=== PATIENT | male | born 1975 | race Caucasian/White ===

== ENCOUNTER 2016-12-20 12:18 | Emergency (ER) | payer MEDICAID ==
[2016-04-16 17:23] VITALS: BMI 38.6
[~2016-12-20 12:18] MED LIST: HYDROCODONE-APA1 TAB PO; LOPRESSOR25 MG PO; NEURONTIN 300300 MG PO; ROBAXIN-750750 MG PO
== END 2016-12-20 13:23 | disposition home or self-care (01) ==
LOC: D.ER 12:18
DX: F32.9 Major depressive disorder, single episode, unspecified (principal); I10 Essential (primary) hypertension

== ENCOUNTER 2018-10-30 05:23 | Emergency (ER) | payer MEDICAID ==
[~2018-10-30] VITALS: Ht 175.3 cm; Wt 115.9 kg
[2018-10-30 05:35] VITALS: Ht 175.3 cm; Wt 115.9 kg
[2018-10-30 06:47] LABS: ALBUMIN 3.8 g/dL (3.4-5.0); ALKALINE PHOSPHATASE 99 U/L (46-116); ALT (SGPT) 56 U/L (10-68); BILIRUBIN - TOTAL 2.05 mg/dL (0.2-1.3); CALC OSMOLALITY 277 mosm/kg (275-300); CALCIUM 8.5 mg/dL (8.5-10.1); CARBON DIOXIDE 26.6 mmol/L (21.0-32.0); CHLORIDE - SERUM 99 mmol/L (98-107); CREATININE - SERUM 0.8 mg/dL (0.6-1.3); PROTEIN - SERUM 7.7 g/dL (6.4-8.2); SODIUM 134 mmol/L (136-145); UREA NITROGEN 11 mg/dL (7-18); URIC ACID 3.2 mg/dL (2.6-7.2); eGFR NON AFRICAN AMERICAN > 90 mL/min (90-120)
[2018-10-30 06:51] LABS: GLUCOSE 290 mg/dL (74-106)
[2018-10-30 07:00] LABS: BASOPHILS 0.2 % (0-2); EOSINOPHILS 2.8 % (0-7); HEMATOCRIT 45.2 % (42.0-54.0); HEMOGLOBIN 15.5 g/dL (13.5-17.5); IMMATURE GRANULOCYTES 0.2 % (0-5); LYMPHOCYTES 14.6 % (15-50); MCH 33.4 pg (26.0-34.0); MCHC 34.3 g/dL (31.0-37.0); MCV 97.4 fL (80.0-100.0); MEAN PLATELET VOLUME 11.9 fL (7.4-10.4); MONOCYTES 11.3 % (2-11); NEUTROPHILS 70.9 % (40-80); RBC 4.64 10x6/uL (4.20-6.10); RDW 12.1 % (11.5-14.5); WBC 10.1 10x3/uL (4.8-10.8)
[2018-10-30 07:13] LABS: PLATELET COUNT 138 10x3/uL (130-400)
[2018-10-30] MEDS ORDERED: CYCLOBENZAPRINE10 MG PO (08:54)
[2018-10-30] MEDS ORDERED: SULFAMETHOXAZOL1 TA3 PO (08:54)
[2018-10-30] MEDS ORDERED: ACETAMINOPHEN500 M1 PO (08:54)
[2018-10-30] MEDS ORDERED: KEFLEX500 MG PO (08:54)
[2018-10-30] MEDS ORDERED: IBUPROFEN800 MG PO (08:54)
[2018-10-30 09:20] VITALS: BP 136/71
== END 2018-10-30 09:30 | disposition home or self-care (01) ==
LOC: D.ER 05:23
PROVIDERS: Family Medicine
DX: L03.116 Cellulitis of left lower limb (principal); L60.0 Ingrowing nail; M79.672 Pain in left foot